=== PATIENT | female | born 1940 | race African-American/Black ===

== ENCOUNTER → 2017-08-23 | Outpatient (CLI) | payer MEDICARE ==
[~2017-08-23] MED LIST: BARIUM SULFATE 176 GM SUSP.RECON ONE; EZ-HD SUSPENSION(BARIUM SULFATE 340GM) PO ONE
== END | disposition home or self-care (01) ==
LOC: RAD 09:06
PROVIDERS: ATTEND Internal Medicine Gastroenterology
DX: K21.9 Gastro-esophageal reflux disease without esophagitis (principal)
CPT/HCPCS: 74220

== ENCOUNTER 2018-02-23 11:24 | Emergency (ER) | payer MEDICARE ==
[~2018-02-23] VITALS: Ht 172.7 cm; Wt 79.9 kg
[2018-02-23] MEDS ORDERED: GABAPENTIN 300MG CAPSULE PO ONE (18:30)
[2018-02-23 19:14] LABS: BASOPHILS % 0.5 % (0.0-2.0); EOSINOPHILS % 2.9 % (0.0-5.0); HEMATOCRIT. 38.9 % (36.0-48.0); HEMOGLOBIN. 13.3 g/dL (12.0-16.0); LYMPHOCYTES % 29.1 % (20.0-50.0); MEAN CORPUSCULAR VOLUME 93.9 fL (81.0-99.0); MEAN PLATELET VOLUME 9.2 fl (7.4-10.4); MONOCYTES % 5.6 % (2.0-8.0); NEUTROPHILS % 61.9 % (40.0-76.0); PLATELET 255 x1000/uL (130-400); RED BLOOD CELL COUNT 4.14 mill/uL (4.2-5.4); RED CELL DISTRIBUTION WIDTH 13.2 % (11.6-14.6)
[2018-02-23 19:20] LABS: CHLORIDE 108 mEq/L (98-107)
[2018-02-23 19:26] LABS: INR 1.1; PROTHROMBIN TIME 10.7 sec (9.1-11.1)
[2018-02-23 21:27] VITALS: BP 121/61
== END 2018-02-23 21:56 | disposition home or self-care (01) ==
LOC: ER 14:55
DX: G62.9 Polyneuropathy, unspecified (principal); R20.2 Paresthesia of skin; K21.9 Gastro-esophageal reflux disease without esophagitis; I10 Essential (primary) hypertension; Z88.0 Allergy status to penicillin; Z88.6 Allergy status to analgesic agent; Z88.8 Allergy status to other drugs, medicaments and biological substances
CPT/HCPCS: 36415; 80053; 83880; 84484; 85025; 85610; 93970; 99285

== ENCOUNTER 2022-05-17 21:14 | Emergency (ER) | payer MEDICARE ==
[~2022-05-17] VITALS: Ht 170.2 cm; Wt 65.0 kg
[2022-05-17 21:29] VITALS: BP 144/70
[2022-05-18 02:38] LABS: BASOPHILS % 0.5 % (0.0-2.0); EOSINOPHILS % 1.2 % (0.0-5.0); HEMATOCRIT. 40.7 % (36.0-48.0); LYMPHOCYTES % 18.7 % (20.0-50.0); MEAN CORPUSCULAR HEMOGLOBIN 32.5 pg (28.0-32.0); MEAN CORPUSCULAR VOLUME 94.7 fL (81.0-99.0); MEAN PLATELET VOLUME 8.9 fl (7.4-10.4); MONOCYTES % 4.8 % (2.0-8.0); NEUTROPHILS % 74.8 % (40.0-76.0); PLATELET 272 x1000/uL (130-400); RED CELL DISTRIBUTION WIDTH 13.8 % (11.6-14.6)
[2022-05-18 02:49] LABS: PARTIAL THROMBOPLASTIN TIME 27.8 sec (23.4-31.0); PROTHROMBIN TIME 10.9 sec (9.6-11.0)
== END 2022-05-18 03:40 | disposition home or self-care (01) ==
LOC: ER 21:14
DX: K03.1 Abrasion of teeth (principal); I48.91 Unspecified atrial fibrillation; K21.9 Gastro-esophageal reflux disease without esophagitis; Z88.0 Allergy status to penicillin
CPT/HCPCS: 36415; 85025; 99283